=== PATIENT | female | born 1960 | race Caucasian/White ===

== ENCOUNTER 2017-08-04 12:27 | Emergency (ER) | payer BC | END 2017-08-04 14:35 | disposition home or self-care (01) | LOC: E/R 14:35 | DX: S00.81XA Abrasion of other part of head, initial encounter (principal); W01.0XXA Fall on same level from slipping, tripping and stumbling without subsequent striking against object, initial encounter; Y92.89 Other specified places as the place of occurrence of the external cause | CPT/HCPCS: 70140; 99283-25 ==